=== PATIENT | female | born 1950 | race African-American/Black ===

== ENCOUNTER 2017-04-15 15:43 | Emergency (ER) | payer MEDICARE ==
[~2017-04-15] VITALS: Ht 154.9 cm; Wt 63.0 kg
[~2017-04-15 15:43] MED LIST: ALVESCO160 MCG IN; AMOXICILLIN500 MG PO; ANUCORT-HC25 MG RE; ASPIRIN81 MG PO; ATENOLOL50 MG OR; BENAZEPRIL10 MG PO; BENAZEPRIL40 M1 OR; BENAZEPRIL40 M1 PO; CALCIUM600 M1 PO; CEPHALEXIN500 MG PO; CLONIDINE0.2 MG PO; CYCLOBENZAPR10 MG PO; DOXYCYCL HYC100 MG PO; FLEXERIL5 M1 PO; GLIPIZIDE5 MG PO; GLUCOTROL XL5 MG PO; IBANDRONATE SO150 MG PO; LASIX20 MG PO; LORTAB 10 PO; LORTAB 5/3255 MG PO; LOTENSIN40 MG OR; METFORMIN1000 MG PO; METFORMIN500 MG PO; METHYLPRED4 MG PO; METOPROL TAR25 MG PO; NAPROXEN375 MG PO; NIFEDIPINE ER90 M1 PO; NIFEDIPINE90 M1 PO; NITRO-DUR0.4 MG/HR TD; NOVOFINE SC; SIMVASTATIN20 MG PO; TRAMADOL HCL50 MG PO; ULTRAM50 MG OR; VENTOLIN HF1 IN; VICTOZA18 MG/3 ML SC; VITAMIN D1000 UNIT PO
[2017-04-15] MEDS ORDERED: GABAPENTIN100 MG PO (18:03)
[2017-04-15] MEDS ORDERED: FUROSEMIDE20 MG PO (18:03)
[2017-04-15] MEDS ORDERED: NIFEDIPINE60 MG PO (18:04)
[2017-04-15] MEDS ORDERED: LISINOPRIL10 MG PO (18:06)
[2017-04-15] MEDS ORDERED: REPAGLINIDE0.5 MG PO (18:07)
[2017-04-15 18:13] LABS: HEMATOCRIT 39.3 % (37.0-47.0); IMMATURE GRANULOCYTES 0.3 % (0.0-1.0); MEAN CELL VOLUME 84.2 fL CALC (80.0-100.0); MEAN CORPUSCULAR HGB 27.8 pG CALC (26.0-32.0); MEAN CORPUSCULAR HGB CONC 33.1 g/L CALC (32.0-36.0); NEUT# 5.29 thou/uL (2.00-7.15); RED BLOOD COUNT 4.67 mill/uL (4.20-5.60); RED CELL DISTRI WIDTH 13.6 % (11.5-15.5)
[2017-04-15] MEDS ORDERED: ANUCORT-HC25 MG RE (18:33)
[2017-04-15 19:00] VITALS: BP 190/88
== END 2017-04-15 19:00 | disposition home or self-care (01) ==
LOC: ED 15:43
PROVIDERS: Emergency Medicine
DX: K64.4 Residual hemorrhoidal skin tags (principal); E11.9 Type 2 diabetes mellitus without complications; I10 Essential (primary) hypertension; J44.9 Chronic obstructive pulmonary disease, unspecified

== ENCOUNTER 2017-07-22 15:35 | Inpatient (IN) | payer MEDICARE ==
[~2017-07-22] VITALS: Ht 154.9 cm; Wt 55.5 kg
[~2017-07-22 15:35] MED LIST changes: +FUROSEMIDE20 MG PO; +GABAPENTIN100 MG PO; +LISINOPRIL10 MG PO; +NIFEDIPINE60 MG PO; +REPAGLINIDE0.5 MG PO
--- NOTE | 2017-07-22 15:53 | NUR ---
PT TAKEN TO ER ROOM 11 VIA EMS. ICE PACKS PLACED UNDER PTS NECK, GROING AREA, ARMPITS.
[2017-07-22 16:10] LABS: URINE BILIRUBIN - DIPSTICK NEGATIVE (NEGATIVE); URINE BLOOD DIPSTICK TRACE-INTACT (NEGATIVE); URINE COLOR YELLOW; URINE GLUCOSE - DIPSTICK NEGATIVE (NEGATIVE); URINE KETONE NEGATIVE (NEGATIVE); URINE LEUK ESTERASE NEGATIVE (NEGATIVE); URINE NITRITE - DIPSTICK NEGATIVE (Negative); URINE PROTEIN - DIPSTICK 100 mg/dL (NEG-TRACE); URINE UROBILINOGEN - DIPSTICK 0.2 E.U./dL (0.2)
[2017-07-22 16:14] LABS: URINE CLARITY CLEAR
[2017-07-22 16:15] LABS: URINE MUCUS FEW hpf (NONE-FEW); URINE SQUAMOUS EPITHELIAL CELL FEW EPI/hpf (0-FEW)
--- NOTE | 2017-07-22 17:00 | NUR ---
PT HAD ONE EPISODE OF VOMITING. UNDIGESTED FOOD NOTED. DR LUKE AWARE. ZOFRAN 4MG IVP GIVEN AT THIS TIME.
[2017-07-22 17:01] LABS: HEMOGLOBIN 13.9 g/dl (12.0-16.0); IMMATURE GRANULOCYTES 0.4 % (0.0-1.0); MEAN CELL VOLUME 85.5 fL CALC (80.0-100.0); MEAN CORPUSCULAR HGB 27.6 pG CALC (26.0-32.0); MEAN CORPUSCULAR HGB CONC 32.3 g/L CALC (32.0-36.0); NEUT# 12.89 thou/uL (2.00-7.15); RED BLOOD COUNT 5.03 mill/uL (4.20-5.60); RED CELL DISTRI WIDTH 13.9 % (11.5-15.5)
[2017-07-22 17:06] LABS: ALBUMIN 4.1 g/dL (3.2-5.0); BILIRUBIN, TOTAL 0.4 mg/dL (0.0-1.4); CREATININE 1.8 mg/dL (0.5-1.0); POTASSIUM 3.8 mmol/l (3.5-5.1)
[2017-07-22 17:08] LABS: INFLUENZA A NONE DETECTED (NONE DETECT); INFLUENZA B NONE DETECTED (NONE DETECT)
--- NOTE | 2017-07-22 17:30 | NUR ---
FAMILY MEMBERS AT BEDSIDE. MONITOR SHOWS SINUS TACH, IVF INFUSING # 20 LEFT HAND. WILL CONTINUE TO MONITOR.
--- NOTE | 2017-07-22 18:00 | NUR ---
TEMP RECHECK 103.8F TYMPANIC - DR LUKE AWARE. NS BOLUS # 2 INITIATED AT THIS TIME. WILL CONTINUE TO MONITOR.
--- NOTE | 2017-07-22 18:05 | NUR ---
VILMA CLARKE AT BEDSIDE TO MEDICATE PT WITH HYDRALAZINE PER MD ORDER. SEE VS CHARTING.
--- NOTE | 2017-07-22 18:50 | NUR ---
BEDSIDE REPORT GIVEN BY VILMA CLARKE TO SCOTT CLARKE AT THIS TIME.
--- NOTE | 2017-07-22 19:30 | NUR ---
PT RELOCATED TO ROOM # 13
--- NOTE | 2017-07-22 20:28 | NUR ---
FAMILY AT BEDSIDE
--- NOTE | 2017-07-22 20:55 | NUR ---
LABETOLOL 20 MG IV GIVEN AT 2009 HRS
--- NOTE | 2017-07-22 21:35 | NUR ---
Admission Note Report Given to: VINCE RO Transported by: Wheelchair X Stretcher Transported with: X Nurse Transporter X Patent IV X O2 Air/Ocean Export Clerk
--- NOTE | 2017-07-22 21:51 | NUR ---
IV FLUIDS CONTINUE. TRANSPORTED VIA STRETCHER. Admission Note Report Given to: VINCE RO Transported by: Wheelchair Stretcher Transported with: Nurse Transporter Patent IV O2 Application Security Consultant
[2017-07-22 21:55] VITALS: BP 152/64
--- NOTE | 2017-07-22 21:55 | NUR ---
PT ARRIVED TO FLOOR WITH ER STAFF. PT ASSISTED TO BED. PT ORIENTED TO ROOM AND CALL LIGHT SYSTEM. PT ALERT AND ORIENTED; PT RESPONDS TO SPEECH. VITAL SIGNS OBTAINED. PT DENIES ANY PAIN OR DISCOMFORT. RESP EVEN AND UNLABORED WITH O2 IN PLACE. TELE IN PLACE. ABD SOFT; ACTIVE BOWEL SOUNDS NOTED. PEDAL PULSES PALPATED BILAT. IV LH PATENT; NO REDNESS OR EDEMA NOTED. KRAUS PATENT; CLEAR YELLOW URINE NOTED. LEG STRAP IN PLACE. PT REPOSITIONED FOR COMFORT, PT ENCOURAGED TO CALL FOR ASSISTANCE. FREQUENT ROUNDS MADE. CALL LIGHT WITHIN REACH.
[2017-07-23] VITALS (11 sets, daily range): BP systolic 123–206; BP diastolic 54–86
--- NOTE | 2017-07-23 00:15 | NUR ---
RESP EVEN AND UNLABORED WITH O2 IN PLACE. TELE IN PLACE. NO DISTRESS NOTED. IV PATENT. CALL LIGHT WITHIN REACH.
--- NOTE | 2017-07-23 04:15 | NUR ---
RESP EVEN AND UNLABORED WITH O2 IN PLACE. NO DISTRESS NOTED. KRAUS PATENT; CALL LIGHT WITHIN REACH. TELE IN PLACE. IV PATENT.
[2017-07-23 06:33] LABS: HEMATOCRIT 37.5 % (37.0-47.0); HEMOGLOBIN 12.3 g/dl (12.0-16.0); IMMATURE GRANULOCYTES 0.7 % (0.0-1.0); MEAN CELL VOLUME 85.6 fL CALC (80.0-100.0); MEAN CORPUSCULAR HGB 28.1 pG CALC (26.0-32.0); MEAN CORPUSCULAR HGB CONC 32.8 g/L CALC (32.0-36.0); NEUT# 10.41 thou/uL (2.00-7.15); RED BLOOD COUNT 4.38 mill/uL (4.20-5.60); RED CELL DISTRI WIDTH 14.1 % (11.5-15.5)
--- NOTE | 2017-07-23 06:38 | NUR ---
DR CORDERO NOTIFIED OF ELEVATED BP; AWAITING ORDERS.
[2017-07-23 06:47] LABS: ALBUMIN 3.4 g/dL (3.2-5.0); BILIRUBIN, TOTAL 0.3 mg/dL (0.0-1.4); CREATININE 1.5 mg/dL (0.5-1.0); MAGNESIUM 1.4 mg/dL (1.6-2.3); POTASSIUM 4.3 mmol/l (3.5-5.1); TOTAL PROTEIN 6.1 g/dL (6.3-8.2)
--- NOTE | 2017-07-23 07:40 | NUR ---
PT.B/P 206/86 HR135. PT.MEDICATED WTIH APRESOLINE AT THIS TIME. WILL RE-EVALUATE BP AND HR.
--- NOTE | 2017-07-23 08:37 | NUR ---
NOTIFIED JONATHAN TILLMAN OF BP/HR. SHE ORDERED LABATALOL TO BE GIVEN BP >170/110 AND REASSESS.
[2017-07-23 09:22] LABS: BARBITURATES NEGATIVE (NEGATIVE); COCAINE NEGATIVE (NEGATIVE); METHADONE NEGATIVE (NEGATIVE); OXCYCODONE NEGATIVE (NEGATIVE); TETRAHYDROCANNABIONOL NEGATIVE (NEGATIVE); TRICYLIC ANTIDEPRESSANTS NEGATIVE (NEGATIVE)
--- NOTE | 2017-07-23 10:14 | NUR ---
PT. MEDICATED WITH LABATALOL 10MG IV ORDERED AND PT.REASSSESSED FOR BP. BP197/80 HR120. TEMP.100.7 JONATHAN TILLMAN NOTIFIED. SON IS AT BEDSIDE AND ON THE PHONE. PT.IS IN LOW FOWLERS POSITION, TALKING ON THE PHONE W/CALL LIGHT AT SIDE.
--- NOTE | 2017-07-23 11:07 | NUR ---
S: SHANTI GARCIA is a 67 F who presents with sepsis. She has a history of HTN, DM. All medications in patient's chart were reviewed. O: VS: BP 194/70, P 117, RR 20,T 99.4 W 55.5 kg, HT 61 in, Scr=1.5, CrCl= 28.2 ml/min A: Blood culture is pending. P: Patient is on cefepime 2 g IV Q12H. Vancomycin ordered for pharmacy to dose. Start Vancomycin 750 mg IV Q24H. Vancomycin trough is drawn before the 4th dose on 07/25 @ 1930. Vancomycin goal trough is between 10-20 mcg/ml. Pharmacy will follow and or advise on antibiotics use as needed.
--- NOTE | 2017-07-23 12:06 | NUR ---
POC DISCUSSED WITH JONATHAN TILLMAN. PT.MEDICATED WITH APRESOLINE, WILL REASSESS FOR BP AND HR.
[2017-07-23 14:32] LABS: CREATININE 1.3 mg/dL (0.5-1.0); POTASSIUM 4.2 mmol/l (3.5-5.1)
--- NOTE | 2017-07-23 18:15 | NUR ---
PT.MEDICATED ORDERS PROVIDE. ACCU-CHECK WAS 327. 4 UNITS OF NOVOLOG ADMINSTERED. PT.IS JUST RECEIVING SUPPER TRAY AT THIS TIME. FRIENDS WERE AT BEDSIDE AND ARE LEAVING NOW. CALL LIGHT IS W/IN REACH
--- NOTE | 2017-07-23 19:20 | NUR ---
REPORT RECEIVED FROM VINCE LEE;UPON ENTERING THE ROOM PT RESTING IN SUPINE POSITION WITH FAMILY MEMBER AT BEDSIDE;POC DISCUSSED;PT DENIES ANY NEEDS AT THIS TIME;FALL PRECAUTIONS IN PLACE;WILL CONTINUE TO MONITOR
--- NOTE | 2017-07-23 19:45 | NUR ---
PT.MEDICATED FOR ELEVATED BP AND HR.
--- NOTE | 2017-07-23 20:00 | NUR ---
PT APPEARS TO BE SLEEPING IN SUPINE POSITION WITH FAMILY AT BEDSIDE;WOKE PT TO COMPLETE ASSESSMENT AND ADMINISTER SCHEDULED MEDICATIONS;PT A&O X3;IN HOUSE MEDICATIONS DISCUSSED WITH FAMILY MEMBER AND ALL QUESTIONS ANSWERED;NON-PRODUCTIVE COUGH NOTED;RESPIRATIONS EVEN AND UNLABORED ON 02 @ 2L VIA NC;HR 123 CURRENTLY,SCHEDULED LOPRESSOR GIVEN;#20G TO LEFT HAND INFUSING D5 1/2 NS @ 10ML/HR PER ;SKIN INTACT;KRAUS CATHETER PATENT DRAINING TO GRAVITY WITH LEG STRAP IN PLACE;ABDOMEN SOFT UPON PALPATION;PERRLA;STRONG PEDAL PULSES;PT VOICES NO OTHER NEEDS AND IS ENCOURAGED TO CALL FOR ASSISTANCE IF NEEDED;FALL PRECAUTIONS IN PLACE WITH BED IN THE LOWEST POSITION;CALL LIGHT IN REACH;WILL CONTINUE TO MONITOR
--- NOTE | 2017-07-23 21:45 | NUR ---
NOTIFIED OF BS 534;NEW ORDERS TO BE RECEIVED
--- NOTE | 2017-07-23 23:00 | NUR ---
PT RESTING IN SUPINE POSITION WATCH TV;PT VOICES NO PAIN OR DISCOMFORTS;RESPIRATIONS EVEN AND UNLABORED ON 02;IV FLUIDS INFUSING WELL TO LEFT HAND;TELE MONITOR IN PLACE;KRAUS PATENT;FRESH WATER PROVIDED;FALL PRECAUTIONS IN PLACE;CALL LIGHT IN REACH
[2017-07-24 04:17] VITALS: BP 155/82
--- NOTE | 2017-07-24 04:45 | NUR ---
PT RESTING IN BED WATCHING TV THIS MORNING;PT DENIES ANY PAIN OR DISCOMFORTS;RESPIRATIONS EVEN AND UNLABORED ON 02 @ 2L VIA NC;IV FLUIDS INFUSING WELL TO LEFT HAND;KRAUS CATHETER PATENT WITH LEG STRAP IN PLACE;FRESH WATER PROVIDED;TELE MONITOR IN PLACE;BED IN THE LOWEST POSITION WITH CALL LIGHT IN REACH;WILL CONTINUE TO MONITOR
[2017-07-24 05:11] LABS: HEMATOCRIT 37.2 % (37.0-47.0); HEMOGLOBIN 12.3 g/dl (12.0-16.0); MEAN CELL VOLUME 84.2 fL CALC (80.0-100.0); MEAN CORPUSCULAR HGB 27.8 pG CALC (26.0-32.0); MEAN CORPUSCULAR HGB CONC 33.1 g/L CALC (32.0-36.0); RED BLOOD COUNT 4.42 mill/uL (4.20-5.60); RED CELL DISTRI WIDTH 14.2 % (11.5-15.5)
[2017-07-24 05:33] LABS: CREATININE 1.4 mg/dL (0.5-1.0); POTASSIUM 3.6 mmol/l (3.5-5.1)
[2017-07-24 08:08] VITALS: BP 209/107
--- NOTE | 2017-07-24 08:15 | NUR ---
PT.IS UPRIGHT IN BED W/BREAKFAST TRAY IN FRONT OF HER. V/S ASSESSED AND AM MEDICATIONS ADMINISTERED. FRIEND IS AT BEDSIDE VISITING. PT.DENIES ANY OTHER NEEDS AT THIS TIME.
--- NOTE | 2017-07-24 08:18 | NUR ---
BP 209/107 HR105. PT.MEDICATED W/CLONODINE AT THIS TIME. WILL REASSESS
--- NOTE | 2017-07-24 08:40 | NUR ---
PT.UPRIGHT IN BED JUST FINISHED EATING BREAKFAST. HE WAS ABLE TO EAT 100% OF HIS EGGS, REPORTED BEING UNABLE TO EAT GRITS. HE ALSO DRANK 1/2 OF ENSURE, NO JUICE. PT.REPORTS THAT IT IS DIFFICULT TO TALK AND SWALLOW. V/S ASSESSED AND AM MEDICATIONS ADMINISTERED. PT.DENIES ANY OTHER ASSISTANCE AT THIS TIME. CALL LIGHT IS W/IN REACH AND BEDSIDE TABLE.
[2017-07-24 09:07] VITALS: BP 147/78
--- NOTE | 2017-07-24 09:07 | NUR ---
PT.V/S ASSESSED. PT.SEEMS TO BE RESPONDING WELL TO CLONODINE GIVEN. BP 147/79, HR 98. PT.SON IS AT BEDSIDE, POC DISCUSSED AT THIS TIME.
[2017-07-24 12:15] VITALS: BP 144/74
--- NOTE | 2017-07-24 12:15 | NUR ---
PT.V/S ASSESSED. BP144/74.
--- NOTE | 2017-07-24 14:56 | NUR ---
PT.MEDICATED W/SOLU MEDROL AND ASSISTED IN REPOSITIONING. PT.WAS SLEEPING WHEN I ENTERED ROOM, BUT AWOKE TO MY VOICE. DENIES ANY PAIN/N/V. CALL LIGHT IS AT BEDSIDE.
[2017-07-24 15:41] VITALS: BP 167/77
--- NOTE | 2017-07-24 17:41 | NUR ---
PT.MEDICATED ORDERS PROVIDE. POC DISCUSSED TO SOME EXTENT W/PT.AND SON. PT.IS NOW LEAVING. PT.IS NOW IN THE BED W/TV ON. SHE DID GET UP TO RECLINER FOR AWHILE TODAY. PT.AMBULATED WELL W/1X ASSIST.
[2017-07-24 18:00] VITALS: BP 181/81
--- NOTE | 2017-07-24 19:30 | NUR ---
BEDSIDE REPORT RECEIVED FROM ROSARN;PT OOB IN RECLINER WATCHING TV;PT DENIES ANY PAIN OR DISCOMFORTS;TELE MONITOR IN PLACE;O2 @ 2L VIA NC;POC DISCUSSED;PT ENCOURAGED TO CALL FOR ASSISTANCE IF NEEDED;CALL LIGHT IN REACH;WILL CONTINUE TO MONITOR
--- NOTE | 2017-07-24 20:35 | NUR ---
AWARE OF ELEVATED BS;NEW ORDERS RECEIVED
--- NOTE | 2017-07-24 21:25 | NUR ---
PT RESTING IN RECLINER WATCHING TV;PT A&O X3;ASSESSMENT COMPLETED;RESPIRATIONS EVEN AND UNLABORED ON 02 @ 2L VIA NC;CLEAR LUNG SOUNDS NOTED;TELE MONITOR IN PLACE;PT VOICES NO COMPLAINTS OF PAIN OR DISCOMFORTS;KRAUS CATHETER PATENT DRAINING TO GRAVITY,LEG STRAP IN PLACE;#20G TO LEFT HAND FLUSHED AND PATENT;PO FLUIDS ENCOURAGED;SKIN INTACT;SAFETY PRECAUTIONS REINFORCED;PT DENIES ANY NEEDS AT THIS TIME;FALL PRECAUTIONS IN PLACE;CALL LIGHT IN REACH;WILL CONTINUE TO MONITOR
--- NOTE | 2017-07-24 22:50 | NUR ---
PT MEDICATED WITH CATAPRES 0.2MG PO FOR BP OF 218/95;WILL CONTINUE TO MONITOR FOR EFFECTIVENESS
--- NOTE | 2017-07-24 23:30 | NUR ---
PT APPEARS TO BE SLEEPING IN RECLINER;NO S/S OF DISTRESS NOTED;RESPIRATIONS EVEN AND UNLABORED ON 02 @ 2L VIA NC;KRAUS CATHETER PATENT;TELE MONITOR IN PLACE;SON AT BEDSIDE REQUESTING TO SPEAK WITH IN THE MORNING, SON RE-ASSSURED;FALL PRECAUTIONS IN PLACE WITH CALL LIGHT IN REACH;WILL CONTINUE TO MONITOR
[2017-07-25] VITALS (7 sets, daily range): BP systolic 120–192; BP diastolic 68–87
[2017-07-25 05:37] LABS: HEMOGLOBIN 12.3 g/dl (12.0-16.0); MEAN CELL VOLUME 84.1 fL CALC (80.0-100.0); MEAN CORPUSCULAR HGB CONC 33.2 g/L CALC (32.0-36.0); RED BLOOD COUNT 4.4 mill/uL (4.20-5.60); RED CELL DISTRI WIDTH 14.1 % (11.5-15.5)
[2017-07-25 05:49] LABS: CREATININE 1.9 mg/dL (0.5-1.0); POTASSIUM 3.9 mmol/l (3.5-5.1)
--- NOTE | 2017-07-25 06:15 | NUR ---
PT APPEARS TO BE SLEEPING IN SUPINE POSITION;WOKE PT TO ADMINISTER SCHEDULED MEDICATION;PT EDUCATED ON EMS IV SITE EXPIRATION DATE AND VERBALIZES UNDERSTANDING;IV SITE REMOVED WITH CATHETER INTACT;NEW #20G STARTED LAC FLUSHED AND PATENT;TELE MONITOR IN PLACE;PT DENIES ANY NEEDS AT THIS TIME;FALL PRECAUTIONS IN PLACE;WILL CONTINUE TO MONITOR
--- NOTE | 2017-07-25 07:00 | NUR ---
SHIFT CHANGE REPORT FROM LEVAR CALLAHAN AWAKE ALERT AND ORIENTED, O2 @ 2L VIA NC, KRAUS CATHETER IN PLACE WITH TABATHA, PINK SEDIMENTED URINE, NO C/O DISCOMFORT, CALL NICHOLAS IN REACH.
--- NOTE | 2017-07-25 07:50 | NUR ---
PT SITTING UP IN BED EATING B/F, BED LOCKED, CALL LIGHT IN REACH.
--- NOTE | 2017-07-25 08:45 | NUR ---
PT ALERT ORIENT X3, NO DISTRESS NOTED, FACE SYMMETRICAL, SCLERA REDISH IN COLOR, PUPILS BRISK & REACTIVE, HEART SOUND NORMAL, LUNGS CLEAR, NON PRODUCTIVE COUGH, ABD SOFT, NORMAL B/S, SKIN WARM/DRY NO ECCHYMOSIS NOTED, PEDAL PULSES STRONG, NORMAL RANGE OF MOTION, TELE MONITOR IN PLACE, O2 @ 2L, KRAUS IN PLACE, NO KINKS NOTED, SOME REDDISH TINGE BLOODY URINE NOTED LEG STRAP SECURE, ASSISTED PT WITH A SHOWER, PT TOLERATED WELL, PT SITTING UPRIGHT IN RECLINER, WHEELS LOCKED, CALL LIGHT IN REACH, PT EDUCATED TO CALL FOR ASSISTANCE. WILL CONTINUE TO MONITOR.
--- NOTE | 2017-07-25 10:51 | NUR ---
PT SITTING UP IN RECLINER VISITING WITH HER SON, PT VOICED NO CONERNS, VS OBTAINED BP 164/81, HR 74, NO TEMP, NURSE INFORED OF VS.
--- NOTE | 2017-07-25 11:55 | NUR ---
SITTING UP IN RECLINER AT THIS TIME, 2 FAILED ATTEMPTS TO START NEW IV CATHETER EXISTING ON E IN RAC INFILTRATED. HAVING MEAL AT THIS TIME AND DOES NOT WANT TO BE DISRUPTED, CALL NICHOLAS IN REACH, WILL CONTINUE TO MONITOR.
--- NOTE | 2017-07-25 12:00 | NUR ---
TRANSPORTED OFF UNIT VIA W/C TO [facility] FOR PROCEDURE AND RETURNED AFTER COMPLETED. EXISTING IV SITE TO RAC INFILTRATED DURING ABT INFUSION, CATHETER REMOVED AND PRESSURE PLACED, NO FURTHER INTERVENTION NEEDED INCIDENT WAS DISCOVERED SHORTLY AFTER OCCURRED.
--- NOTE | 2017-07-25 17:06 | NUR ---
patient feels better and improving. no side effects.c
--- NOTE | 2017-07-25 19:50 | NUR ---
PT WOKE FOR ASSESSMENT. PT ALERT AND ORIENTED. RESP EVEN AND UNLABORED WITH O2 IN PLACE. NO DISTRESS NOTED. TELE IN PLACE. ABD SOFT; ACTIVE BOWEL SOUNDS NOTED. PEDAL PULSES PALPATED BILAT. KRAUS PATENT; PINKISH URINE NOTED. IV RH PATENT; FLUSHED WITHOUT DIFFICULTY. PT DENIES ANY PAIN OR DISCOMFORT. FREQUENT ROUNDS MADE. CALL LIGHT WITHIN REACH.
[2017-07-26] VITALS (8 sets, daily range): BP systolic 119–210; BP diastolic 48–84
--- NOTE | 2017-07-26 00:20 | NUR ---
RESP EVEN AND UNLABORED WITH O2 IN PLACE. TELE IN PLACE. NO DISTRESS NOTED. CALL LIGHT WITHIN REACH.
--- NOTE | 2017-07-26 04:10 | NUR ---
RESP EVEN AND UNLABORED WITH O2 IN PLACE. ASSESSMENT UNCHANGED. TELE IN PLACE. CALL LIGHT WITHIN REACH.
[2017-07-26 06:13] LABS: CREATININE 1.5 mg/dL (0.5-1.0); MAGNESIUM 1.9 mg/dL (1.6-2.3)
[2017-07-26 06:14] LABS: HEMATOCRIT 37.8 % (37.0-47.0); HEMOGLOBIN 12.8 g/dl (12.0-16.0); MEAN CELL VOLUME 82.5 fL CALC (80.0-100.0); MEAN CORPUSCULAR HGB 27.9 pG CALC (26.0-32.0); MEAN CORPUSCULAR HGB CONC 33.9 g/L CALC (32.0-36.0); RED BLOOD COUNT 4.58 mill/uL (4.20-5.60); RED CELL DISTRI WIDTH 13.8 % (11.5-15.5)
--- NOTE | 2017-07-26 07:00 | NUR ---
SHIFT CHANGE REPORT FROM JAYJAY, PT AWAKE ALERT AND ORIENTED RESTING IN BED, BREATHING EVEN AND NON=LABORED, TELE MONITOR IN PLACE, ALL NEEDS ADDRESSED, CALL NICHOLAS IN REACH.
--- NOTE | 2017-07-26 12:00 | NUR ---
KRAUS CATHETER REMOVED @ 1005, PT TOLERATED PROCEDURE WELL, SITTING UP IN CHAIR AND INFORMED OF IMPORTANCE OF URINATING NATURALLY AND ADVISED TO CALL FOR ASSIST WHEN URGE TO URINATE ARISES. CALL NICHOLAS IN REACH.
--- NOTE | 2017-07-26 15:24 | NUR ---
S: SHANTI GARCIA is a 67 F who presents with sepsis and pneumonia. She has a history of hypernatremia, T2DM, and hypertensive urgency. All medications in patient's chart were reviewed. O: VS: BP 140/73, P 70, RR 18,T 97.3 (F) W 55.5 kg, HT 61 in, Scr= 1.5,CrCl= 28.2 ml/min A: Blood culture and urine culture show no growth. P: Patient is on Cefepime 2 g IV q24h. Vancomycin ordered for pharmacy to dose. Start Vancomycin 1 G IV Q24H. Vancomycin trough is drawn before the 4th dose on 07/29/17 at 16:30. Vancomycin goal trough is between 10-20 mcg/ml. Pharmacy will follow and or advise on antibiotics use as needed.
--- NOTE | 2017-07-26 15:37 | NUR ---
Patient feels better. Pt denied any side effects pertaining to medications. patient still has a little cough with blood.c
--- NOTE | 2017-07-26 16:00 | NUR ---
SITTING UP IN RECLINER, HAS BEEN URINATING WITHOUT DIFFICULTY SINCE REMOVAL OF CATHETER EXCEPT FOR FIRST URINATION WHEN THERE WAS SOME INCONTINENCE. ALL NEEDS ADDRESSED, CALL NICHOLAS IN REACH.
--- NOTE | 2017-07-26 20:04 | NUR ---
MEDICATED WITH LOPRESSOR IV FOR SBP 168/80, FOUND PT IN BRP, HAVING A BM, ASSISTED PT TO BED AND MEDICATED, EDUCATED ABOUT SIDE EFFECTS OF BP MED ADMINISTERED, VOICES UNDERSTANDING DENIES PAIN AT THIS TIME, MILD DISTRESS NOTED, PLACED O2 2LPM VIA NC, WILL CONTINUE TO MONITOR CLOSELY.
--- NOTE | 2017-07-26 21:12 | NUR ---
FOUND PT IN BRP, HAVING A BM, DIARRHEA, WATERY, DENIES ABD PAIN, C/O BACK MUSCLE SPAMS, MEDICATED WITH TYLENOL PER ORDERS, WILL REASSESS FREQUENTLY, MODERATE DISTRESS NOTED, ASSISTED BACK TO BED, PLACED ON OXYGEN AT 2LPM VIA NC, CALL NCIHOLAS IS AT REACH, INSTRUCTED PT TO CALL WHEN USING THE BRP, VOICES UNDERSTANDING, FREQUENTLY ROUNDS WILL CONTINUE.
[2017-07-27] VITALS (12 sets, daily range): BP systolic 126–198; BP diastolic 64–91
--- NOTE | 2017-07-27 02:28 | NUR ---
MEDICATED WITH LOPRESSOR IV PER ORDERS FOR SBP 182/82, PT IS RESTING IN BED QUIETLY, DENIES PAIN, WILL REASSESS AGAIN. FREQUENTLY ROUNDS MADE.
--- NOTE | 2017-07-27 02:56 | NUR ---
MEDICATED PT WITH LOPRESSOR IV PER EMAR, BP 193/65, HR 109, RR 18, SPO2 94% ON ROOM AIR, PT HAS OXYGEN SET UP AT BEDSIDE, DENIES PAIN OR SOB AT THIS TIME, NO DISTRESS NOTED, RESTING IN BED QUIETLY, AROUSES TO MINIMAL STIMULI, INSTRUCTED TO CALL IF NEED TO USE BRP, VOICES UNDERSTANDING, FREQUENTLY ROUNDS MADE.
--- NOTE | 2017-07-27 03:58 | NUR ---
PT RESTING IN BED QUIETLY, AWAKE, ASYMPTOMATIC 188/78 RIGHT ARM WITH DINAMAP, MANUAL 190/80 RIGHT ARM, PT DENIES ANY SOB, N/V, DIZZINESS, WEAKNESS, APPEARS CALM AND RELAX, WATCHING TV, WILL MONITOR CLOSELY, AND MEDICATE PER EMAR. FREQUENTLY ROUNDS MADE.
--- NOTE | 2017-07-27 04:37 | NUR ---
PT DENIES ANY BM'S THIS MORNING, ASSITED TO BRP, VOIDED 1000CC CLEAR YELLOW URINE, DENIES PAIN OR SOB, SLOW STEADY GAIT NOTED, FREQUENTLY ROUNDS MADE. MEDICATED WITH CATAPRESS PER EMAR FOR HTN. WILL CONTINUE TO MONITOR BP.
[2017-07-27 05:38] LABS: HEMATOCRIT 41.8 % (37.0-47.0); HEMOGLOBIN 14.2 g/dl (12.0-16.0); IMMATURE GRANULOCYTES 0.8 % (0.0-1.0); MEAN CELL VOLUME 81.5 fL CALC (80.0-100.0); MEAN CORPUSCULAR HGB 27.7 pG CALC (26.0-32.0); NEUT# 9.08 thou/uL (2.00-7.15); RED BLOOD COUNT 5.13 mill/uL (4.20-5.60); RED CELL DISTRI WIDTH 13.9 % (11.5-15.5)
[2017-07-27 05:40] LABS: CREATININE 1.3 mg/dL (0.5-1.0); MAGNESIUM 1.8 mg/dL (1.6-2.3); POTASSIUM 3.8 mmol/l (3.5-5.1)
--- NOTE | 2017-07-27 07:00 | NUR ---
RECEIVED BEDSIDE REPORT FROM PRACHI CLARKE. RESTING IN BED WITH EYES CLOSED, AWAKENS EASILY. RESPS EVEN AND UNLABORED ON ROOM AIR, TELE MONITOR IN PLACE. DENIES PAIN OR DISCOMFORT. PLAN OF CARE DISCUSSED. SAFETY PRECAUTIONS REINFORCED. BED IN LOWEST POSITION WITH WHEELS LOCKED. CALL LIGHT WITHIN REACH. ENCOURAGED PT TO CALL FOR ANY NEEDS.
--- NOTE | 2017-07-27 08:35 | NUR ---
PT AWAKE, SITTING AT BEDSIDE. PT IS ALERT, ORIENTED X3. SPEECH IS CLEAR. FACE SYMMETRICAL. PUPILS EQUAL AND REACTIVE TO LIGHT. GOOD CAPILLARY REFILL. STRONG UPPER AND LOWER EXTREMITIES. GOOD APICAL, RADIAL, PEDAL PULSES. RESPIRATIONS EVEN AND UNLABORED. LUNG SOUNDS CLEAR. BOWEL SOUNDS ACTIVE. SKIN INTACT. GOOD SKIN TURGOR. #22 RH, NO SWELLING OR REDNESS TO AREA. PT STATES NO PAIN AT THIS TIME. BED IN LOWEST POSITION. SIDE RAILS UP. CALL LIGHT WITHIN REACH. WILL CONTINUE TO MONITOR.
--- NOTE | 2017-07-27 12:00 | NUR ---
SITTING IN BEDSIDE RECLINER WITH BILAT FEET ELEVATED. RESPS EVEN AND UNLABORED ON ROOM AIR, TELE MONITOR IN PLACE. VOICES NO NEEDS AT THIS TIME. CALL LIGHT WITHIN REACH. ENCOURAGED PT TO CALL FOR ANY NEEDS.
--- NOTE | 2017-07-27 16:34 | NUR ---
SITTING IN BEDSIDE CHAIR, FAMILY AT BEDISDE. RESPS EVEN AND UNLABORED ON ROOM IAR, TELE MONITOR IN PLACE. VOICES NO NEEDS AT THIS TIME. CALL LIGHT WITHIN REACH. WILL CONTINUE TO MONITOR.
[2017-07-27] MEDS ORDERED: FLORASTOR250 M1 PO (17:20)
[2017-07-27] MEDS ORDERED: DOXYCYCL HYC100 MG PO (17:20)
[2017-07-27] MEDS ORDERED: AUGMENTIN875TAB PO (17:20)
[2017-07-27] MEDS ORDERED: GABAPENTIN100 MG PO (18:05)
--- NOTE | 2017-07-27 20:00 | NUR ---
PT SITTING IN RECLINER CHAIR A/O X3, RESPIRATIONS EVEN AND UNLABORED ON RA. DENIES PAIN OR DISCOMFORT. ENCOURAGED TO USE CALL LIGHT FOR ASSISTANCE. WILL CONTINUE TO MONITOR.
--- NOTE | 2017-07-28 00:07 | NUR ---
B/P 188/90, HR 78, CLONIDINE 0.2MG PO GIVEN AT THIS TIME, WILL CONTINUE TO MONITOR. PT A/O X3, VOICES NO CONCERN.
[2017-07-28 00:17] VITALS: BP 188/90
--- NOTE | 2017-07-28 04:00 | NUR ---
RESTING ON RIGHT SIDE WITH EYES CLOSED, RESPIRATIONS EVEN AND UNLABORED. CALL LIGHT IN REACH.
[2017-07-28 04:10] VITALS: BP 142/58
--- NOTE | 2017-07-28 07:00 | NUR ---
RECEIVED BEDSIDE REPORT FROM JESSY KOVACS. RESTING IN BED WITH EYES CLOSED, AWAKENS EASILY. RESPS EVEN AND UNLABORED ON ROOM AIR, TELE MONITOR IN PLACE. DENIES PAIN OR DISCOMFORT. PLAN OF CARE DISCUSSED. SAFETY PRECAUTIONS REINFORCED. BED IN LOWEST POSITION WITH WHEELS LOCKED. CALL LIGHT WITHIN REACH. ENCOURAGED PT TO CALL FOR ANY NEEDS.
[2017-07-28 07:38] LABS: HEMATOCRIT 35.7 % (37.0-47.0); IMMATURE GRANULOCYTES 0.4 % (0.0-1.0); MEAN CELL VOLUME 81.9 fL CALC (80.0-100.0); MEAN CORPUSCULAR HGB 27.5 pG CALC (26.0-32.0); MEAN CORPUSCULAR HGB CONC 33.6 g/L CALC (32.0-36.0); NEUT# 7.24 thou/uL (2.00-7.15); RED BLOOD COUNT 4.36 mill/uL (4.20-5.60)
[2017-07-28 07:40] VITALS: BP 170/63
[2017-07-28 08:10] LABS: CREATININE 1.6 mg/dL (0.5-1.0); POTASSIUM 3.7 mmol/l (3.5-5.1)
--- NOTE | 2017-07-28 09:50 | NUR ---
DR CORDERO IN WITH PT, NEW ORDERS RECEIVED.
[2017-07-28 11:00] VITALS: BP 150/80
--- NOTE | 2017-07-28 12:00 | NUR ---
SITTING IN BEDSIDE CHAIR EATING LUNCH. RESPS EVEN AND UNLABORED ON ROOM AIR, TELE MONITOR IN PLACE. DENIES PAIN OR DISCOMFORT. CALL LIGHT WITHIN REACH. WILL CONTINUE TO MONITOR.
[2017-07-28] MEDS ORDERED: IPRATROPIU0.5 MG/3 M IN (12:48)
[2017-07-28] MEDS ORDERED: METOPROL TAR25 MG PO (12:48)
[2017-07-28] MEDS ORDERED: NOVOLOG100 UNIT/M SC (12:48)
[2017-07-28] MEDS ORDERED: LEVEMIR100 UNIT/M SC (12:48)
[2017-07-28] MEDS ORDERED: PROCARDIA XL90 MG PO (12:48)
[2017-07-28] MEDS ORDERED: BENAZEPRIL40 M1 PO (12:48)
[2017-07-28] MEDS ORDERED: PREDNISONE10 MG PO (12:54)
--- NOTE | 2017-07-28 14:44 | NUR ---
Pt was seen for discharge med education. Pt is worried she will mistake Levemir for Aspart. Pt also has trouble understanding dosing schedules. Pt was told about DASH diet. Pulling Machine Operator consult was requested. Pt was counseled on grapefruit juice. Pt had no other questions or concerns.
[2017-07-28 15:20] VITALS: BP 200/78
[2017-07-28 15:28] VITALS: BP 200/78
--- NOTE | 2017-07-28 15:32 | NUR ---
SITTING IN BEDSIDE CHAIR. RESPS EVEN AND UNLABORED ON ROOM AIR, TELE MONITOR IN PLACE. MEDICATED WITH CLONIDINE 0.2MG PO FOR BP 200/78. DENIES PAIN OR DISCOMFORT. CALL LIGHT WITHIN REACH. WILL CONTINUE TO MONITOR.
--- NOTE | 2017-07-28 18:30 | NUR ---
IV site discontinued, cath intact. No edema , no redness, voices no discomfort.
--- NOTE | 2017-07-28 19:02 | NUR ---
Discharge instructions given. Patient verbalizes understanding of same. Discharged in stable condition via Wheelchair to Home with family. All belongings sent with pt.
== END 2017-07-28 19:00 | disposition home health service (06) | DRG 871 ==
LOC: ED 15:35 → ED-I 16:22 → ED 16:22 → ED-I 18:16 → ED 21:23 → MS2 21:24
PROVIDERS: Family Medicine; Nurse Practitioner Family; ADMIT Internal Medicine; ATTEND Internal Medicine
PROC: 0T9B70Z Drainage of Bladder with Drainage Device, Via Natural or Artificial Opening (ICD-10-PCS; principal; 2017-07-22)
DX: A41.9 Sepsis, unspecified organism (principal); R65.20 Severe sepsis without septic shock; J96.01 Acute respiratory failure with hypoxia; J18.9 Pneumonia, unspecified organism; G93.41 Metabolic encephalopathy; E87.0 Hyperosmolality and hypernatremia; N17.9 Acute kidney failure, unspecified; D68.32 Hemorrhagic disorder due to extrinsic circulating anticoagulants; E11.22 Type 2 diabetes mellitus with diabetic chronic kidney disease; N18.3 Chronic kidney disease, stage 3 (moderate); J44.9 Chronic obstructive pulmonary disease, unspecified; I16.0 Hypertensive urgency; E78.5 Hyperlipidemia, unspecified; R04.0 Epistaxis; T45.515A Adverse effect of anticoagulants, initial encounter; R31.9 Hematuria, unspecified; I12.9 Hypertensive chronic kidney disease with stage 1 through stage 4 chronic kidney disease, or unspecified chronic kidney disease; E83.42 Hypomagnesemia; K04.7 Periapical abscess without sinus; E11.65 Type 2 diabetes mellitus with hyperglycemia; Z79.84 Long term (current) use of oral hypoglycemic drugs
CPT/HCPCS: A9540; A9567; J0692; J1650; J3370

== ENCOUNTER 2017-08-01 22:28 | Emergency (ER) | payer MEDICARE ==
[~2017-08-01] VITALS: Ht 154.9 cm; Wt 62.4 kg
[~2017-08-01 22:28] MED LIST changes: +AUGMENTIN875TAB PO; +FLORASTOR250 M1 PO; +IPRATROPIU0.5 MG/3 M IN; +LEVEMIR100 UNIT/M SC; +NOVOLOG100 UNIT/M SC; +PREDNISONE10 MG PO; +PROCARDIA XL90 MG PO
[2017-08-01 23:37] VITALS: BP 154/64
== END 2017-08-01 23:35 | disposition home or self-care (01) ==
LOC: ED 22:28
DX: E11.65 Type 2 diabetes mellitus with hyperglycemia (principal); Z79.4 Long term (current) use of insulin; I10 Essential (primary) hypertension

== ENCOUNTER 2017-11-10 15:50 | Emergency (ER) | payer MEDICARE ==
[~2017-11-10] VITALS: Ht 154.9 cm; Wt 80.0 kg
[2017-11-10 16:34] LABS: HEMATOCRIT 34.6 % (37.0-47.0); HEMOGLOBIN 11.5 g/dl (12.0-16.0); IMMATURE GRANULOCYTES 0.3 % (0.0-1.0); MEAN CELL VOLUME 82.6 fL CALC (80.0-100.0); MEAN CORPUSCULAR HGB 27.4 pG CALC (26.0-32.0); MEAN CORPUSCULAR HGB CONC 33.2 g/L CALC (32.0-36.0); NEUT# 6.23 thou/uL (2.00-7.15); RED BLOOD COUNT 4.19 mill/uL (4.20-5.60); RED CELL DISTRI WIDTH 14.1 % (11.5-15.5)
[2017-11-10 16:57] LABS: ALBUMIN 3.4 g/dL (3.2-5.0); BILIRUBIN, TOTAL 0.2 mg/dL (0.0-1.4); CREATININE 1.9 mg/dL (0.5-1.0); POTASSIUM 3.9 mmol/l (3.5-5.1); TOTAL PROTEIN 6.3 g/dL (6.3-8.2)
[2017-11-10] MEDS ORDERED: ULTRAM50 M1 PO (17:06)
[2017-11-10 17:20] VITALS: BP 137/53
== END 2017-11-10 17:28 | disposition home or self-care (01) ==
LOC: ED 15:50
PROVIDERS: Emergency Medicine
DX: R51 Headache (principal); E11.9 Type 2 diabetes mellitus without complications; I10 Essential (primary) hypertension

== ENCOUNTER → 2018-08-10 | Outpatient (REF) | payer MEDICARE ==
[~2018-08-10] MED LIST changes: +ULTRAM50 M1 PO
[2018-08-10 08:13] LABS: HEMATOCRIT 39.8 % (37.0-47.0); IMMATURE GRANULOCYTES 0.2 % (0.0-5.0); MEAN CORPUSCULAR HGB 27.8 pG CALC (26.0-32.0); MEAN CORPUSCULAR HGB CONC 32.7 g/L CALC (32.0-36.0); NEUT# 5.72 thou/uL (2.00-7.15); RED BLOOD COUNT 4.68 mill/uL (4.20-5.60); RED CELL DISTRI WIDTH 13.2 % (11.5-15.5)
[2018-08-10 08:56] LABS: BILIRUBIN, TOTAL 0.3 mg/dL (0.0-1.4); CHOLESTEROL HDL RATIO 2.7 (<4.4 (CALC)); CREATININE 2.2 mg/dL (0.5-1.0); POTASSIUM 3.9 mmol/l (3.5-5.1); TOTAL PROTEIN 7.2 g/dL (6.3-8.2)
== END | disposition home or self-care (01) ==
LOC: LAB 06:52
PROVIDERS: ATTEND Internal Medicine Geriatric Medicine
DX: E78.2 Mixed hyperlipidemia (principal); I10 Essential (primary) hypertension; E11.9 Type 2 diabetes mellitus without complications

== ENCOUNTER → 2018-08-21 | Outpatient (REF) | payer MEDICARE | END | disposition home or self-care (01) | LOC: MAMMO 10:22 | PROVIDERS: ATTEND Internal Medicine Geriatric Medicine | DX: Z12.31 Encounter for screening mammogram for malignant neoplasm of breast (principal) ==

== ENCOUNTER → 2018-08-29 | Outpatient (REF) | payer MEDICARE | END | disposition home or self-care (01) | LOC: ULTRASND 08:05 | PROVIDERS: ATTEND Nurse Practitioner Family | DX: I10 Essential (primary) hypertension (principal) ==

== ENCOUNTER → 2018-09-04 | Outpatient (REF) | payer MEDICARE ==
[2018-09-04 08:56] LABS: CREATININE 2.6 mg/dL (0.5-1.0); POTASSIUM 3.9 mmol/l (3.5-5.1)
== END | disposition home or self-care (01) ==
LOC: LAB 07:23
PROVIDERS: ATTEND Internal Medicine Cardiovascular Disease
DX: N18.1 Chronic kidney disease, stage 1 (principal); E11.9 Type 2 diabetes mellitus without complications; E78.00 Pure hypercholesterolemia, unspecified; I10 Essential (primary) hypertension

== ENCOUNTER 2018-10-30 09:47 | Emergency (ER) | payer MEDICARE ==
[~2018-10-30] VITALS: Ht 154.9 cm; Wt 61.0 kg
[2018-10-30 11:12] LABS: HEMATOCRIT 36.9 % (37.0-47.0); HEMOGLOBIN 11.8 g/dl (12.0-16.0); IMMATURE GRANULOCYTES 0.1 % (0.0-5.0); MEAN CELL VOLUME 84.6 fL CALC (80.0-100.0); MEAN CORPUSCULAR HGB 27.1 pG CALC (26.0-32.0); NEUT# 4.75 thou/uL (2.00-7.15); RED BLOOD COUNT 4.36 mill/uL (4.20-5.60); RED CELL DISTRI WIDTH 13.2 % (11.5-15.5)
[2018-10-30] MEDS ORDERED: METOPROL TAR25 MG PO (11:15)
[2018-10-30] MEDS ORDERED: HYDRALAZINE25 MG PO (11:17)
[2018-10-30] MEDS ORDERED: BENAZEPRIL10 MG PO (11:17)
[2018-10-30] MEDS ORDERED: ASPIRIN 8181 MG PO (11:18)
[2018-10-30] MEDS ORDERED: NOVOLOG FL100 UNIT/M SC (11:20)
[2018-10-30] MEDS ORDERED: XALATAN 0.005%2.5 ML OU (11:20)
[2018-10-30] MEDS ORDERED: [UNRECOGNIZED DRUG - OTHER] OU (11:22)
[2018-10-30] MEDS ORDERED: NOVOLIN 70/30 SC (11:23)
[2018-10-30] MEDS ORDERED: PRANDIN1 MG PO (11:24)
[2018-10-30] MEDS ORDERED: DILT-XR180 MG PO (11:25)
[2018-10-30 11:26] LABS: ALBUMIN 3.8 g/dL (3.2-5.0); BILIRUBIN, TOTAL 0.3 mg/dL (0.0-1.4); CREATININE 2.7 mg/dL (0.5-1.0); POTASSIUM 3.5 mmol/l (3.5-5.1); TOTAL PROTEIN 6.7 g/dL (6.3-8.2)
[2018-10-30 13:14] VITALS: BP 120/58
== END 2018-10-30 13:14 | disposition home or self-care (01) ==
LOC: ED 09:47
PROVIDERS: Emergency Medicine
DX: I10 Essential (primary) hypertension (principal); E11.9 Type 2 diabetes mellitus without complications

== ENCOUNTER 2019-05-17 | Observation (INO) | payer MEDICARE ==
[2019-05-17] VITALS (20 sets, daily range): BP systolic 135–168; BP diastolic 60–70
[~2019-05-17] MED LIST changes: +ASPIRIN 8181 MG PO; +COMBIGAN0.2 MG/0.5 OU; +DILT-XR180 MG PO; +HYDRALAZINE25 MG PO; +NOVOLIN 70/30 SC; +NOVOLOG FL100 UNIT/M SC; +PRANDIN1 MG PO; +XALATAN 0.005%2.5 ML OU
--- NOTE | 2019-05-17 09:01 | NUR ---
PT IMMEDIATELY TO ROOM 10 VIA EMS STRETCHER
[2019-05-17 09:26] LABS: HEMATOCRIT 38.5 % (37.0-47.0); HEMOGLOBIN 12.2 g/dl (12.0-16.0); IMMATURE GRANULOCYTES 0.4 % (0.0-5.0); MEAN CELL VOLUME 85.9 fL CALC (80.0-100.0); MEAN CORPUSCULAR HGB 27.2 pG CALC (26.0-32.0); MEAN CORPUSCULAR HGB CONC 31.7 g/L CALC (32.0-36.0); NEUT# 17.01 thou/uL (2.00-7.15); RED BLOOD COUNT 4.48 mill/uL (4.20-5.60)
--- NOTE | 2019-05-17 09:31 | NUR ---
CARDENE DRIP INFUSING, PT RESTING BETTER ON BIPAP, SATS 99 % WARM BLANKET GIVEN.
[2019-05-17 09:39] LABS: ALBUMIN 3.9 g/dL (3.2-5.0); POTASSIUM 4.1 mmol/l (3.5-5.1); TOTAL PROTEIN 7.5 g/dL (6.3-8.2)
[2019-05-17 09:40] LABS: INTERNATIONAL NORMALIZED RATIO 1.1 RATIO (0.7-1.3)
--- NOTE | 2019-05-17 09:40 | NUR ---
TITRATE CARDENE TO 7.5
[2019-05-17 09:57] LABS: BILIRUBIN, TOTAL 0.7 mg/dL (0.0-1.4)
--- NOTE | 2019-05-17 10:00 | NUR ---
PTS FAMILY AT BEDSIDE, PT STATES BREATHING BETTER WITH BIPAP, CARDENE INFUSING.
--- NOTE | 2019-05-17 10:30 | NUR ---
ADVISED PT OF ADMISSION TO ICU, PURPLE SHIRT, PINK SLIPPERS, AND DRIVERS LICENSE PLACED IN BAG WITH LABEL ON TO TAKE TO ICU.
--- NOTE | 2019-05-17 11:30 | NUR ---
PT ARRIVED TO ICU BED 2 VIA STRETCHER FROM ED, RT AT BEDSIDE FOR BIPAP. PT A&OX4 ABLE TO MAKE NEEDS KNOWN.ADMIT DX. SOB,HTN CRISIS.PT WAS TRASNFERRED WITH MAX ASSIST. DENIES CP, OR DISTRESS AT THIS TIME. PT SR ON TELEMETRY, HR 77.CARDENE INFUSING TO 20GLFA AT 7.5MG/HR. NO S/S OF INFILTRATION OR INFECTION NOTED AT SITE. RESPIRATIONS EVEN/UNLABORED. BIPAP IN PLACE 14/6 AT 40%, LS CLEAR/DIMINISHED THROUGHOUT. ABDOMEN SOFT, NOT TENDER. BSX4 ACTIVE LBM, 05-17-19. PT ORIENTED TO ROOM, UNIT.AND CALL LIGHT. WILL MONITOR.
--- NOTE | 2019-05-17 11:38 | NUR ---
PT TAKEN TO ICU PER STRETCHER AND CARDIAC MONITER ON O2 NC. PT TOLERATED WELL
--- NOTE | 2019-05-17 12:27 | NUR ---
PT SON, MAMADOU CALLED FOR UPDATE ON MOM. CODE RECIEVED.
--- NOTE | 2019-05-17 13:00 | NUR ---
RT AT BEDSIDE FOR ASSESSMENT.
--- NOTE | 2019-05-17 13:45 | NUR ---
PT SON,BJ AT BEDSIDE FOR VISIT AND UPDATE ON MOM.
--- NOTE | 2019-05-17 14:55 | NUR ---
DR. RAYGOZA AND JONATHAN TILLMAN AT BEDSIDE FOR ASSESSMENT AND TO DISCUSS PLAN OF CARE.NEW ORDERS RECIEVED.
--- NOTE | 2019-05-17 16:00 | NUR ---
SON BJ ARRIVED AT BEDSIDE FOR VISIT. UPDATE GIVEN. PT REQUESTING NEURONTIN, PRIMO, JONATHAN NOTIFIED. NEW ORDERS RECIEVED. PT RESTING WITH BIPAP IN PLACE. CALL LIGHT IN REACH. PT REMAINS NPO.
--- NOTE | 2019-05-17 17:30 | NUR ---
PT RESTING IN BED WITH EYES CLOSED. BIPAP IN PLACE. PT OFFERS NO COMPLAINTS AT THIS TIME. KRAUS CATHETER REMAINS PATENT, DRAINING TO BSD VIA GRAVITY. CALL LIGHT IN REACH. WILL MONITOR.
--- NOTE | 2019-05-17 18:14 | NUR ---
PT REMAINS NPO. RESTING IN BED WITH BIPAP IN PLACE. DENIES CP, AT THIS TIME. NAYANA PATENT, DRAINING TO BSD VIA GRAVITY. CALL LIGHT IN REACH. WILL MONITOR.
--- NOTE | 2019-05-17 18:45 | NUR ---
REPORT FROM Beau WILDE RN. ASSUMED PT. CARE.
--- NOTE | 2019-05-17 19:45 | NUR ---
PT. FOUND RESTING IN BED WITH EYES CLOSED IN NO DISTRESS. RESPS EVEN AND UNLABORED. SINUS TACH ON THE MONITOR. LUNGS DIMINISHED TO BASES BILAT. NO COUGH NOTED. BOWEL SOUNDS ACTIVE. S1, S2 NOTED. MAE. HENDERSON. DENIES COMPLAINTS OF PAIN AT THIS TIME. TRACE LOWER EXT EDEMA. DISTIL PULSES INTACT. PT. STABLE AT THIS TIME. CALL LIGHT WITHIN REACH. WILL CONTINUE TO MONITOR.
[2019-05-17 20:20] LABS: URINE BILIRUBIN - DIPSTICK NEGATIVE (NEGATIVE); URINE BLOOD DIPSTICK MODERATE (NEGATIVE); URINE COLOR YELLOW; URINE GLUCOSE - DIPSTICK 100 mg/dL (NEGATIVE); URINE KETONE NEGATIVE (NEGATIVE); URINE LEUK ESTERASE NEGATIVE (NEGATIVE); URINE NITRITE - DIPSTICK NEGATIVE (Negative); URINE PH 5.5 (4.5-8.0); URINE PROTEIN - DIPSTICK >=300 mg/dL (NEG-TRACE); URINE SPECIFIC GRAVITY >=1.030; URINE UROBILINOGEN - DIPSTICK 0.2 E.U./dL (0.2)
[2019-05-17 20:44] LABS: URINE AMORPH SEDIMENT MODERATE hpf (NONE-FEW); URINE SQUAMOUS EPITHELIAL CELL FEW EPI/hpf (0-FEW); URINE WBC 0-2 WBC/hpf (0-5)
--- NOTE | 2019-05-17 20:45 | NUR ---
ACCUCHECK 299. WILL MEDICATE ORDERED. CALL LIGHT REMAINS WITHIN REACH. SON AND DAUGHTER AT BEDSIDE AT THIS TIME. UPDATED ON PLAN OF CARE AND LIKELY COURSE OF HOSPITAL STAY.
--- NOTE | 2019-05-17 22:05 | NUR ---
SECOND SON AT BEDSIDE AT THIS TIME. ZOSYN INFUSED WITHOUT SIGNS OF REACTION OR EXTRAVASATION. CALL LIGHT REMAINS WITHIN REACH. IV FLUIDS AT KVO. PT. DENIES COMPLAINTS OF PAIN OR NEEDS AT THIS TIME. PROVIDED WITH WATER. WILL CONTINUE TO CLOSELY MONITOR.
--- NOTE | 2019-05-17 23:52 | NUR ---
PT. RESTING IN BED WITH EYES CLOSED. RESPS EVEN AND UNLABORED. SKIN WARM AND DRY. AFEBRILE AT 99.0. DENIES COMPLAINTS OF PAIN OR NEED AT THIS TIME. WILL CONTINUE TO CLOSELY MONITOR ANS ASSESS NEED FOR BIPAP ADMINISTRATION.
[2019-05-18] VITALS (8 sets, daily range): BP systolic 141–194; BP diastolic 63–87
[2019-05-18 05:52] LABS: IMMATURE GRANULOCYTES 0.3 % (0.0-5.0); MEAN CELL VOLUME 86.4 fL CALC (80.0-100.0); MEAN CORPUSCULAR HGB 27.8 pG CALC (26.0-32.0); MEAN CORPUSCULAR HGB CONC 32.2 g/L CALC (32.0-36.0); NEUT# 16.47 thou/uL (2.00-7.15); RED BLOOD COUNT 3.67 mill/uL (4.20-5.60); RED CELL DISTRI WIDTH 14.2 % (11.5-15.5)
[2019-05-18 05:54] LABS: HEMATOCRIT 31.7 % (37.0-47.0); HEMOGLOBIN 10.2 g/dl (12.0-16.0)
[2019-05-18 06:24] LABS: POTASSIUM 4.6 mmol/l (3.5-5.1)
--- NOTE | 2019-05-18 06:45 | NUR ---
RECIEVED REPORT FROM VINCE LUGO. ASSUMED PT CARE.
--- NOTE | 2019-05-18 07:45 | NUR ---
PT RESTING IN BED, RESPIRATIONS EVEN/UNLABORED SA02@98% 02VIA NC. LS CLEAR/RHONCHI BASES. ABDOMEN SOFT/DISTENDED, BSX4. KRAUS PATENT DRAINING TO BSD VIA GRAVITY. STRICT I&O'S INTACT. PT OFFERS NO COMPLAINTS AT THIS TIME CALL LIGHT IN REACH.
--- NOTE | 2019-05-18 08:00 | NUR ---
PT HAD INC EPISODE OF BM, SMALL. PT ASSISTED WITH COMPLETE BATH, FULL LINEN AND GOWN CHANGE. PT DID MOUTH CARE, BREAKFAST TRAY SET UP. PT ASSISTED TO CHAIR, TOLERATED TRANSFER WELL. CALL LIGHT IN REACH. WILL MONITOR.
--- NOTE | 2019-05-18 08:30 | NUR ---
MAYELA BJ ARRIVED AT BEDSIDE.
--- NOTE | 2019-05-18 09:15 | NUR ---
JONATHAN TILLMAN AT BEDSIDE FOR ASSESSMENT AND TO DISCUSS PLAN OF CARE. SON AT BEDSIDE WELL.
--- NOTE | 2019-05-18 10:05 | NUR ---
PT RESTING IN BED WITH EYES CLOSED, RESPIRATIONS EVEN/UNLABORED. CALL LIGHT IN REACH. WILL MONITOR.
--- NOTE | 2019-05-18 11:13 | NUR ---
DAVID HERNANDEZ AT BEDSIDE FOR TX REVIEW.
--- NOTE | 2019-05-18 11:30 | NUR ---
PT ASSITED TO BSC, THEN TO CHAIR FOR LUNCH. LUNCH TRAY SET UP. PT TOLERATED WELL.
--- NOTE | 2019-05-18 12:30 | NUR ---
PT ASSISTED TO BSC, THEN BACK TO BED.
--- NOTE | 2019-05-18 14:00 | NUR ---
PT SON AND DAUGHTER ARRIVED AT BEDSIDE FOR VISIT. CALL LIGHT IN REACH. WILL MONITOR.
--- NOTE | 2019-05-18 15:45 | NUR ---
[facility] CALLED WITH BED ASSIGNMENT, CONSENTS SIGNED FOR TRANSFER SIGNED. PT AWARE OF TRANSPORT BY [facility] ETA IN 45 MIN.
--- NOTE | 2019-05-18 16:42 | NUR ---
DR. RAYGOZA AT BEDSIDE FOR ASSESSMENT AND TO DISCUSS PLAN OF CARE. PT BEING TRANSFERRED TO [facility] FOR HD INITIATION. SON AT BEDSIDE .
--- NOTE | 2019-05-18 17:31 | NUR ---
[facility] ARRIVED FOR TRANSPORT. REPORT GIVEN TO MORIS WITH EMS. SON REMAINS AT BEDSIDE.
--- NOTE | 2019-05-18 17:45 | NUR ---
Discharge instructions given. Patient verbalizes understanding of same. Discharged in stable condition via Medical Transport to [facility] RM[facility][id number] with staff. All belongings sent with pt.
--- NOTE | 2019-05-18 17:55 | NUR ---
REPORT CALLED TO [facility] ICU, SPOKE WITH OMA [phone].
== END 2019-05-18 17:45 ==
PROVIDERS: Nurse Practitioner Family; ADMIT Internal Medicine
PROC: 0T9B70Z Drainage of Bladder with Drainage Device, Via Natural or Artificial Opening (ICD-10-PCS; principal; 2019-05-17)
PROC: 5A09457 Assistance with Respiratory Ventilation, 24-96 Consecutive Hours, Continuous Positive Airway Pressure (ICD-10-PCS; 2019-05-17)
DX: J96.01 Acute respiratory failure with hypoxia (principal); J18.9 Pneumonia, unspecified organism; N17.9 Acute kidney failure, unspecified; I16.0 Hypertensive urgency; I12.9 Hypertensive chronic kidney disease with stage 1 through stage 4 chronic kidney disease, or unspecified chronic kidney disease; E11.22 Type 2 diabetes mellitus with diabetic chronic kidney disease; N18.4 Chronic kidney disease, stage 4 (severe); H40.9 Unspecified glaucoma; Z79.4 Long term (current) use of insulin; R06.02 Shortness of breath
CPT/HCPCS: J1650

== ENCOUNTER 2019-05-30 12:24 | Observation (INO) | payer MEDICARE ==
[~2019-05-30] VITALS: Ht 154.9 cm; Wt 58.0 kg
--- NOTE | 2019-05-30 12:50 | NUR ---
PT WENT OT HER DIALYSIS APPT THIS AM, AND THEY WERE UNABLE TO PERFROM TREATMENT RELATED TO LEAKING AROUND INSERTION SITE AND NON WORKING PORT PER STAFF AT [facility] THEY CALLED WHO TOLD THEM TO BRING SNED HER HERE, PT TRIAGED AND PLACED BACK IN WAITING ROOM RELATED TO BUSY E.R. INSTRUCTED TO NOTIFY STAFF AND ANY PROBLEMS, COMPLAINTS OR WORSENING OF CONSITION, PT AND FAMILY VERBALIZED UNDERSTANDING. TATYANA IN AND LEFT MESSAGE
--- NOTE | 2019-05-30 13:55 | NUR ---
PATIENT REQUESTS NOT TO BE CALLD BACK TO EXAM ROOM AT THIS TIME. PATIENT TRYING TO GET A HOLD OF LAST CLEANER AND SEE IF THEY CAN JUST GO TO ANOTHER HOSPITAL. PATIENT STATES THEY DONT WANT A BILL FROM 2 DIFFERENT HOSPITALS IF IT IS SOMETHING THAT THIS HOSPITAL IS UNABLE TO FIX. PATIENT EXPLAINED THAT WE WOULD BE MORE THAN HAPPY TO SEE THEM BUT IS UNABLE TO SAY WHAT WE COULD OR COULD NOT DO FOR THEM UNLESS THEY ARE EXAMINED BY PHYSICIAN. PATIENT EXPLAINED THAT THEIR ROOM WAS READY AND THEY AGAIN REQUESTED TO WAIT UNTIL THEY GET A HOLD OF THEIR PHYSICIAN. MD NOTIFED. PATIENT DENIES ANY PAIN OR DISCOMFORT AT THIS TIME. PATIENT STATES NO DISTRESS AT THIS TIME.
--- NOTE | 2019-05-30 14:30 | NUR ---
Pt to room # 13
--- NOTE | 2019-05-30 15:15 | NUR ---
IV SITE ESTABLISHED TO [employer] WORK COLLECTED. PATIENT REPORTS RECENT ADMIT TO HOSPITAL FOR SOB.
[2019-05-30 15:28] LABS: HEMATOCRIT 27.4 % (37.0-47.0); HEMOGLOBIN 9.1 g/dl (12.0-16.0); IMMATURE GRANULOCYTES 0.2 % (0.0-5.0); MEAN CELL VOLUME 81.5 fL CALC (80.0-100.0); MEAN CORPUSCULAR HGB 27.1 pG CALC (26.0-32.0); MEAN CORPUSCULAR HGB CONC 33.2 g/L CALC (32.0-36.0); NEUT# 8.6 thou/uL (2.00-7.15); RED BLOOD COUNT 3.36 mill/uL (4.20-5.60); RED CELL DISTRI WIDTH 13.8 % (11.5-15.5)
[2019-05-30 15:45] LABS: ACT PARTIAL THROMBO TIME 24.8 SECONDS (20.0-32.5); PROTHROMBIN TIME 10.5 SECONDS (9.0-12.5)
[2019-05-30 15:46] LABS: ALBUMIN 3.4 g/dL (3.2-5.0); POTASSIUM 4.2 mmol/l (3.5-5.1); TOTAL PROTEIN 6.4 g/dL (6.3-8.2)
[2019-05-30 15:51] LABS: BILIRUBIN, TOTAL 0.3 mg/dL (0.0-1.4); CREATININE 9.1 mg/dL (0.5-1.0)
--- NOTE | 2019-05-30 16:00 | NUR ---
AT BEDSIDE TO DISCUSS RESULTS AND PLAN OF CARE.
--- NOTE | 2019-05-30 17:00 | NUR ---
PATIENT EATING SNACK.
[2019-05-30] MEDS ORDERED: SIMVASTATIN20 MG PO (17:27)
[2019-05-30] MEDS ORDERED: FAMOTIDINE10 M1 PO (17:32)
[2019-05-30] MEDS ORDERED: DIOVAN80 MG PO (17:33)
[2019-05-30] MEDS ORDERED: ROCALTROL0.25 MCG PO (17:34)
--- NOTE | 2019-05-30 17:35 | NUR ---
MED REC COMPLETED WITH PATIENT AND DAUGHTER. WITH HOME MED LIST.
--- NOTE | 2019-05-30 17:55 | NUR ---
PATIENT AMBULATES TO AND FROM BATHROOM WITH STEADY GAIT, URINE SAMPLE COLLECTED.
--- NOTE | 2019-05-30 18:03 | NUR ---
REPORT CALLED TO FERMÍN العراقي.
--- NOTE | 2019-05-30 18:40 | NUR ---
PATIENT TRANSPORTED TO [facility] VIA WHEELCHAIR WITH TELE IN PLACE. BELONGINGS SENT UP WITH PATIENT, STAFF INFORMED OF PATIENT ARRIVAL TO ROOM. CARE RELINQUISHED.
[2019-05-30 19:19] VITALS: BP 149/58
--- NOTE | 2019-05-30 20:22 | NUR ---
PT ASSESSED AT THIS TIME AND ADMISSION QUESTIONS COMPLETED. NO FAMILY AT BEDSIDE. PT DENIES PAIN/SOB/N/V OR ANY OTHER SYMPTOMS AT THIS TIME. DIRECTOR OF CONSERVATION CALLED FROM ROOM TO TAKE CALL FROM DR. GRIFFITHS/ORDERS RECEIVED REAGARDING PT BEING PLACED NPO @2400. PT INFORMED OF THIS. DENIES ANY OTHER NEEDS AT THIS TIME. CALL LIGHT AT SIDE.
--- NOTE | 2019-05-30 22:33 | NUR ---
PT MEDICATED ORDERS PROVIDE. PT WAS SLEEPING I ENTERED THE ROOM. FAMILY MEMBER ASLEEP AT BEDSIDE. NO S/O DISTRESS NOTED. PT DENIES ANY NEEDS AT THIS TIME. CALL LIGHT W/IN REACH.
[2019-05-31] VITALS (9 sets, daily range): BP systolic 144–168; BP diastolic 48–69
--- NOTE | 2019-05-31 | NUR ---
AIDES IN W/PT, PT PO FLUIDS REMOVED FROM BEDSIDE AND REMINDED TO BE NPO FOR REMAINDER OF THE NIGHT. FAMILY ASLEEP AT BEDSIDE.
--- NOTE | 2019-05-31 05:00 | NUR ---
PT SLEEPING, AIDES WERE JUST IN TO OBTAIN V/S. FAMILY ASLEEP AT BEDSIDE. PT NPO. CALL LIGHT AT SIDE.
[2019-05-31 05:15] LABS: HEMATOCRIT 24.8 % (37.0-47.0); HEMOGLOBIN 8.2 g/dl (12.0-16.0); IMMATURE GRANULOCYTES 0.3 % (0.0-5.0); MEAN CELL VOLUME 82.1 fL CALC (80.0-100.0); MEAN CORPUSCULAR HGB 27.2 pG CALC (26.0-32.0); MEAN CORPUSCULAR HGB CONC 33.1 g/L CALC (32.0-36.0); NEUT# 7.24 thou/uL (2.00-7.15); RED BLOOD COUNT 3.02 mill/uL (4.20-5.60); RED CELL DISTRI WIDTH 13.5 % (11.5-15.5)
[2019-05-31 05:30] LABS: PROTHROMBIN TIME 10.6 SECONDS (9.0-12.5)
[2019-05-31 05:39] LABS: ALBUMIN 2.9 g/dL (3.2-5.0); BILIRUBIN, TOTAL 0.2 mg/dL (0.0-1.4); POTASSIUM 4.2 mmol/l (3.5-5.1); TOTAL PROTEIN 5.6 g/dL (6.3-8.2)
[2019-05-31 05:56] LABS: CREATININE 9.1 mg/dL (0.5-1.0)
--- NOTE | 2019-05-31 07:20 | NUR ---
pt transported to or. via stretcher. spoke to pt and family.
--- NOTE | 2019-05-31 07:42 | NUR ---
miriam ramon called and inquired if pt was going to be discharged and when, explained that pt just went to the or, and no orders have been sent.
--- NOTE | 2019-05-31 10:10 | NUR ---
PT RETURNED FROM OR VIA BED, NO DISTRESS NOTED. IV SITE IN THE LAC WITH FLUIDS MAINTAINING. SCD'S IN PLACE. FAMILY IN THE ROOM ASKING QUESTIONS ABOUT WHAT IS GOING ON. CONTINUE TO OSBERVE AND MONITOR.
--- NOTE | 2019-05-31 10:20 | NUR ---
ASSESSMENT IS COMPLETED: ON PT IS ALERT EASILY AROUSABLE. DRESSING ON LEFT CW IS CDI. HR IS REG,PULSES ARE STRONG X4, ABD IS SOFT WITH ACTIVE BS. BREATH SOUNDS ARE CLEAR,BILATERALLY. SCD'S INPLACE. TELE MONITOR IN PLACE,. CONTINUE TO OSBERVE AND MONITOR.
--- NOTE | 2019-05-31 10:47 | NUR ---
CALLING ANTONIO TRENT RE: PT. FOR DISCHARGE EXPLAINED THAT THE LINE PLACEMENT WAS CHANGED FROM RIGHT TO LEFT. AND WHEN PT IS MORE AWAKE THEN WILL DISCHARGE HOME. VERBALIZED UNDERSTANDING,. SPOKE WITH RCOÍO JEFFRIES).
--- NOTE | 2019-05-31 13:00 | NUR ---
PT AND FAMILY RECIEVED DISCHARGE INSTRUCITONS AND VERBALIZED UNDERSTANDING. ALREADY PHONED DIALYSIS TO INFORM OF PT BEING DISCHARGED. Discharge instructions given. Patient verbalizes understanding of same. Discharged in stable condition via Wheelchair to Home with family. All belongings sent with pt.
== END 2019-05-31 13:55 | disposition home or self-care (01) ==
LOC: ED 12:24 → ED-I 14:39 → ED 16:30 → MS2 16:31
PROVIDERS: Nurse Practitioner Family; ADMIT Internal Medicine; ATTEND Internal Medicine
PROC: 0JPT3XZ Removal of Tunneled Vascular Access Device from Trunk Subcutaneous Tissue and Fascia, Percutaneous Approach (ICD-10-PCS; principal; 2019-05-31)
PROC: 0JH63XZ Insertion of Tunneled Vascular Access Device into Chest Subcutaneous Tissue and Fascia, Percutaneous Approach (ICD-10-PCS; 2019-05-31)
PROC: 02PY33Z Removal of Infusion Device from Great Vessel, Percutaneous Approach (ICD-10-PCS; 2019-05-31)
PROC: 02HV33Z Insertion of Infusion Device into Superior Vena Cava, Percutaneous Approach (ICD-10-PCS; 2019-05-31)
PROC: B518ZZA Fluoroscopy of Superior Vena Cava, Guidance (ICD-10-PCS; 2019-05-31)
DX: T82.868A Thrombosis due to vascular prosthetic devices, implants and grafts, initial encounter (principal); E11.22 Type 2 diabetes mellitus with diabetic chronic kidney disease; I12.0 Hypertensive chronic kidney disease with stage 5 chronic kidney disease or end stage renal disease; N18.6 End stage renal disease; D64.9 Anemia, unspecified; J44.9 Chronic obstructive pulmonary disease, unspecified; Y83.1 Surgical operation with implant of artificial internal device as the cause of abnormal reaction of the patient, or of later complication, without mention of misadventure at the time of the procedure; Z79.4 Long term (current) use of insulin; Z99.2 Dependence on renal dialysis
CPT/HCPCS: G0378

== ENCOUNTER 2019-06-02 18:13 | Emergency (ER) | payer MEDICARE ==
[~2019-06-02] VITALS: Ht 154.9 cm; Wt 57.0 kg
[~2019-06-02 18:13] MED LIST changes: +DIOVAN80 MG PO; +FAMOTIDINE10 M1 PO; +ROCALTROL0.25 MCG PO
[2019-06-02 21:20] VITALS: BP 128/62
== END 2019-06-02 21:39 | disposition home or self-care (01) ==
LOC: ED 18:13
DX: T82.898A Other specified complication of vascular prosthetic devices, implants and grafts, initial encounter (principal); I12.0 Hypertensive chronic kidney disease with stage 5 chronic kidney disease or end stage renal disease; E11.22 Type 2 diabetes mellitus with diabetic chronic kidney disease; N18.6 End stage renal disease; Z99.2 Dependence on renal dialysis; Y83.8 Other surgical procedures as the cause of abnormal reaction of the patient, or of later complication, without mention of misadventure at the time of the procedure; Z79.4 Long term (current) use of insulin

== ENCOUNTER 2019-07-24 22:17 | Observation (INO) | payer MEDICARE ==
[~2019-07-24] VITALS: Ht 154.9 cm; Wt 58.5 kg
[2019-07-24 23:36] LABS: IMMATURE GRANULOCYTES 0.4 % (0.0-5.0); MEAN CORPUSCULAR HGB 27.7 pG CALC (26.0-32.0); MEAN CORPUSCULAR HGB CONC 31.3 g/L CALC (32.0-36.0); NEUT# 7.06 thou/uL (2.00-7.15); RED BLOOD COUNT 3.86 mill/uL (4.20-5.60); RED CELL DISTRI WIDTH 15.5 % (11.5-15.5)
[2019-07-24 23:39] LABS: HEMATOCRIT 34.2 % (37.0-47.0); HEMOGLOBIN 10.7 g/dl (12.0-16.0); MEAN CELL VOLUME 88.6 fL CALC (80.0-100.0)
[2019-07-24 23:52] LABS: CREATININE 4.5 mg/dL (0.5-1.0); POTASSIUM 5.7 mmol/l (3.5-5.1)
[2019-07-25 02:50] VITALS: BP 131/78
[2019-07-25] MEDS ORDERED: VITAMIN D50000 UNIT PO (03:07)
[2019-07-25] MEDS ORDERED: METOPROLOL TAR100 MG PO (03:10)
[2019-07-25] MEDS ORDERED: GABAPENTIN300 M2 PO (03:11)
[2019-07-25] MEDS ORDERED: VALSARTAN80 MG PO (03:13)
[2019-07-25] MEDS ORDERED: LATANOPROST0.005 % OU (03:16)
[2019-07-25] MEDS ORDERED: NOVOLOG100 UNIT/M SC (03:21)
[2019-07-25 07:00] LABS: HEMATOCRIT 32.5 % (37.0-47.0); HEMOGLOBIN 10.4 g/dl (12.0-16.0); IMMATURE GRANULOCYTES 0.3 % (0.0-5.0); MEAN CELL VOLUME 87.1 fL CALC (80.0-100.0); MEAN CORPUSCULAR HGB 27.9 pG CALC (26.0-32.0); NEUT# 4.99 thou/uL (2.00-7.15); RED BLOOD COUNT 3.73 mill/uL (4.20-5.60); RED CELL DISTRI WIDTH 15.3 % (11.5-15.5)
[2019-07-25 07:14] LABS: CREATININE 4.8 mg/dL (0.5-1.0)
[2019-07-25 07:21] LABS: POTASSIUM 4.4 mmol/l (3.5-5.1)
[2019-07-25 08:00] VITALS: BP 188/63
[2019-07-25] MEDS ORDERED: PROCARDIA XL60 MG PO (09:30)
[2019-07-25 11:00] VITALS: BP 142/68
== END 2019-07-25 11:40 | disposition home or self-care (01) ==
LOC: ED 22:17 → ED-I 23:48 → ED 07-25 01:35 → ICU 07-25 01:36
PROVIDERS: Family Medicine; ADMIT Internal Medicine; ATTEND Internal Medicine
DX: E87.5 Hyperkalemia (principal); I12.0 Hypertensive chronic kidney disease with stage 5 chronic kidney disease or end stage renal disease; E11.22 Type 2 diabetes mellitus with diabetic chronic kidney disease; N18.6 End stage renal disease; J44.9 Chronic obstructive pulmonary disease, unspecified; Z99.2 Dependence on renal dialysis; Z79.4 Long term (current) use of insulin
CPT/HCPCS: J1650

== ENCOUNTER 2021-06-15 09:14 | Day surgery (SDC) | payer MEDICARE ==
[~2021-06-15] VITALS: Ht 154.9 cm; Wt 65.8 kg
[~2021-06-15 09:14] MED LIST changes: +CLONIDINE0.1 MG PO; +GABAPENTIN300 M2 PO; +HYDROCODONE BIT1 TA9 PO; +LATANOPROST0.005 % OU; +METOPROLOL TAR100 MG PO; +NOVOLOG100 UNIT SC; +PROCARDIA XL60 MG PO; +REPAGLINIDE1 MG PO; +SIMVASTATIN40 MG PO; +VALSARTAN80 MG PO; +VITAMIN D50000 UNIT PO
[2021-06-15 13:46] VITALS: BP 225/93
== END 2021-06-15 14:40 | disposition home or self-care (01) ==
LOC: ENDO 09:14 → ORM 11:00 → ENDO 11:00 → ORM 12:30 → ENDO 14:40
PROVIDERS: ATTEND Surgery
DX: K92.1 Melena (principal); I10 Essential (primary) hypertension; E11.9 Type 2 diabetes mellitus without complications; Z79.4 Long term (current) use of insulin; Z53.09 Procedure and treatment not carried out because of other contraindication